=== PATIENT | female | born 1950 | race Caucasian/White ===

== ENCOUNTER 2022-04-16 14:00 | Inpatient (IN) ==
[2022-05-14] MEDS ORDERED: Lactated Ringers 1000 ml BAG 1,000 ML IV SCH ×2 (06:00→13:00)
[2022-05-14] MEDS ORDERED: Buffered Lidocaine 1% SYRIN 1 ml INTRADERM ONE (06:00)
[2022-05-14] MEDS ORDERED: Naloxone 0.4 mg VIAL 0.4 mg/ml 1 ml VIAL IV PRN (07:18)
[2022-05-14] MEDS ORDERED: HYDROmorphone 1 MG/1 ML SYRINGE IV PRN (07:18)
[2022-05-14] MEDS ORDERED: Prochlorperazine 5 mg/ml 2 ml VIAL (10 mg) IV PRN (07:18)
[2022-05-14] MEDS ORDERED: Clindamycin 900 MG/D5W BAG 900 MG/50 ML BAG IVPB ONE (08:48)
[2022-05-14] MEDS ORDERED: ROPIVACAINE 5 MG/ML 30 ML BTL (0.5%) ONE (10:27)
[2022-05-14] MEDS ORDERED: fentaNYL 100 mcg/2 ml 50 MCG/ML VIAL ONE (10:27)
[2022-05-14] MEDS ORDERED: Midazolam 2 mg/2 ml VIAL 1 mg/ml 2 ml VIAL (2 mg) ONE (10:27)
[2022-05-14] MEDS ORDERED: Lidocaine 2% PF 5 ML VIAL ONE (10:31)
[2022-05-14] MEDS ORDERED: Phenylephrine IV 10 MG/ML 1 ml VIAL ONE (10:31)
[2022-05-14] MEDS ORDERED: Ropivacaine 5 MG/ML 20 ML VIAL 0.5% (100 MG) ONE ×2 (10:37→11:06)
[2022-05-14] MEDS ORDERED: Dexamethasone IV 4 MG/ML VIAL 1 ml VIAL ONE (11:53)
[2022-05-14] MEDS ORDERED: Ondansetron 4 mg VIAL 2 MG/ML 2 ml VIAL ONE (11:53)
[2022-05-14] MEDS ORDERED: Propofol 10 MG/ML 20 ML BTL ONE (11:53)
[2022-05-14] MEDS ORDERED: Magnesium Hydroxide LIQ 30 ML UDC PO PRN (12:33)
[2022-05-14] MEDS ORDERED: Ondansetron 4 mg VIAL 2 MG/ML 2 ml VIAL IV PRN (12:33)
[2022-05-14] MEDS ORDERED: Lactulose 30 ml UDC PO PRN (12:33)
[2022-05-14] MEDS ORDERED: Ondansetron ODT 4 mg TAB 4 MG TAB PO PRN (12:33)
[2022-05-14] MEDS ORDERED: Morphine 2 MG/ML SYRINGE IV PRN (12:33)
[2022-05-14] MEDS ORDERED: Dextrose 50% Syringe 50 ml 25 GM/50 ML SYRINGE IV PUSH PRN (14:43)
[2022-05-14] MEDS ORDERED: HYDROcodone/Acetamin 10/325 TAB (NF) PO PRN (14:44)
[2022-05-14] MEDS: Magnesium Hydroxide LIQ 30 ML UDC PO SCH (20:02)
[2022-05-14] MEDS: Clindamycin 600 MG/D5W BAG 600 MG/50 ML BAG IV SCH (20:18)
[2022-05-15] MEDS: Clindamycin 600 MG/D5W BAG 600 MG/50 ML BAG IV SCH ×2 (03:08→11:02)
[2022-05-15 06:55] LABS: Hematocrit 34 % (35-47); Hemoglobin 11.5 g/dL (12.0-16.0); Mean Platelet Volume 8.6 fL (7.4-10.4); Platelet Count 290 10^3/uL (150-450)
[2022-05-15 07:11] LABS: Potassium 4.4 mmol/L (3.5-5.0); eGFR CKD-EPI 52.7 (>60)
[2022-05-15 08:31] VITALS: BP 132/78
[2022-05-15] MEDS ORDERED: Vitamin THERAPEUTIC TAB PO SCH (09:00)
[2022-05-15] MEDS: Magnesium Hydroxide LIQ 30 ML UDC PO SCH (09:15)
== END 2022-05-15 13:00 | disposition home or self-care (01) | DRG 470 ==
LOC: AA 05-14 08:32 → SSU 05-14 17:09
PROVIDERS: ADMIT Orthopaedic Surgery Adult Reconstructive Orthopaedic Surgery; ATTEND Orthopaedic Surgery Adult Reconstructive Orthopaedic Surgery